=== PATIENT | female | born 1965 | race Caucasian/White ===

== ENCOUNTER 2022-05-27 19:18 | Inpatient (IN) | payer OTHER ==
[~2022-05-27] VITALS: Ht 152.4 cm; Wt 68.5 kg
[2022-05-27] MEDS ORDERED: KETOROLAC TROMETHAMINE 30 MG/ML VIAL IV STA (20:20)
[2022-05-27 21:08] LABS: BASOPHILS % 0.5 % (0.0-1.0); EOSINOPHILS # (AUTO) 0.1 (0.0-0.4); HEMATOCRIT 38.2 % (34.2-44.1); HEMOGLOBIN 12.8 g/dL (12.0-16.0); LYMPHOCYTES # (AUTO) 2.1 (1.0-3.2); LYMPHOCYTES % 34.3 % (18.0-39.1); MEAN CORPUSCULAR HEMOGLOBIN 31.7 pg (28-32); MEAN CORPUSCULAR HGB CONC 33.5 g/dL (31-35); MEAN CORPUSCULAR VOLUME 94.6 fL (81-99); MONOCYTES # (AUTO) 0.5 (0.2-0.8); MONOCYTES % 7.7 % (4.4-11.3); NEUTROPHILS # (AUTO) 3.3 (2.1-6.9); NEUTROPHILS % 55.3 % (38.7-80.0); PLATELET COUNT 362 x10e3/uL (140-360); RED BLOOD COUNT 4.04 x10e6/uL (3.6-5.1); RED CELL DISTRIBUTION WIDTH 11.5 % (11.7-14.4)
[2022-05-27 21:28] LABS: CLARITY,URINE CLEAR (CLEAR); COLOR,URINE YELLOW (YELLOW)
[2022-05-27 21:29] LABS: KETONES,URINE 1+ (NEGATIVE); LEUKOCYTE ESTERASE ,URINE NEGATIVE (NEGATIVE); NITRITE,URINE NEGATIVE (NEGATIVE); PROTEIN,URINE DIPSTICK TRACE (NEGATIVE); URINE UROBILINOGEN 0.2 mg/dL (0.2 - 1)
[2022-05-27 21:34] LABS: ALANINE AMINOTRANSFERASE 27 IU/L (0-55); ALBUMIN 3.9 g/dL (3.5-5.0); ALBUMIN/GLOBULIN RATIO 1.3 (0.8-2.0); ALKALINE PHOSPHATASE 77 IU/L (40-150); ANION GAP 18.1 mmol/L (8-16); BLOOD UREA NITROGEN 18 mg/dL (7-26); BUN/CREATININE RATIO 28 (6-25); CALCIUM 9.1 mg/dL (8.4-10.2); CARBON DIOXIDE 21 mmol/L (22-29); CHLORIDE 100 mmol/L (98-107); CREATINE KINASE 100 IU/L (29-168); CREATININE, SERUM 0.65 mg/dL (0.57-1.11); GLUCOSE 102 mg/dL (74-118); POTASSIUM 3.1 mmol/L (3.5-5.1); SODIUM 136 mmol/L (136-145)
[2022-05-27 21:53] LABS: BACTERIA,URINE FEW /HPF; EPITHELIAL CELLS,URINE FEW /LPF; MUCUS,URINE RARE (RARE); WBC,URINE (MAN) 0-5 /HPF (0-5)
[2022-05-27] MEDS ORDERED: IOPAMIDOL 370 MG/ML 100 ML INFUS..BTL INJ ONE (22:03)
[2022-05-27] MEDS ORDERED: Morphine 4mg INJECTION 4 MG/ML INJ IV PRN (23:15)
[2022-05-27 23:55] VITALS: BP 171/68
[2022-05-27] MEDS: SODIUM CHLORIDE 0.9% 1000ML 1,000 ML IV SCH (23:55)
[2022-05-28] VITALS (9 sets, daily range): BP systolic 121–162; BP diastolic 59–81
[2022-05-28] MEDS: ONDANSETRON HCL INJ 2MG/ML 2ML 2 MG/ML VIAL IV PRN (00:07)
[2022-05-28] MEDS ORDERED: DICLOFENAC SODI50 MG PO (02:02)
[2022-05-28] MEDS ORDERED: TUMS ULTRA400 MG PO (02:02)
[2022-05-28] MEDS ORDERED: LIPITOR20 MG PO (02:02)
[2022-05-28] MEDS ORDERED: METFORMIN HCL500 MG PO (02:02)
[2022-05-28] MEDS ORDERED: PANTOPRAZOLE SO40 MG PO (02:02)
[2022-05-28] MEDS ORDERED: ASPIRIN81 MG PO (02:02)
[2022-05-28] MEDS ORDERED: LISINOPRIL10 MG PO (02:02)
[2022-05-28] MEDS ORDERED: SIMETHICONE80 MG PO (02:02)
[2022-05-28] MEDS ORDERED: TERBINAFINE HC250 MG PO (02:02)
[2022-05-28] MEDS ORDERED: CARBAMAZEPINE200 MG PO ×2 (02:02)
[2022-05-28 05:14] LABS: BASOPHILS % 0.4 % (0.0-1.0); EOSINOPHILS # (AUTO) 0.1 (0.0-0.4); EOSINOPHILS % 2.5 % (0.0-6.0); HEMATOCRIT 34.1 % (34.2-44.1); HEMOGLOBIN 11.4 g/dL (12.0-16.0); LYMPHOCYTES # (AUTO) 1.8 (1.0-3.2); LYMPHOCYTES % 38.9 % (18.0-39.1); MEAN CORPUSCULAR HEMOGLOBIN 31.7 pg (28-32); MEAN CORPUSCULAR HGB CONC 33.4 g/dL (31-35); MEAN CORPUSCULAR VOLUME 94.7 fL (81-99); MONOCYTES # (AUTO) 0.4 (0.2-0.8); MONOCYTES % 8.2 % (4.4-11.3); NEUTROPHILS # (AUTO) 2.4 (2.1-6.9); NEUTROPHILS % 49.8 % (38.7-80.0); PLATELET COUNT 314 x10e3/uL (140-360); RED CELL DISTRIBUTION WIDTH 11.5 % (11.7-14.4)
[2022-05-28 05:35] LABS: ANION GAP 15.3 mmol/L (8-16); CALCIUM 8.3 mg/dL (8.4-10.2); CREATININE, SERUM 0.62 mg/dL (0.57-1.11); POTASSIUM 3.3 mmol/L (3.5-5.1)
[2022-05-28 06:06] LABS: ALBUMIN 3.3 g/dL (3.5-5.0)
[2022-05-28 06:26] LABS: ALBUMIN/GLOBULIN RATIO 1.3 (0.8-2.0)
[2022-05-28] MEDS: CARBAMAZEPINE 200 MG TAB PO SCH ×2 (10:30→20:48)
[2022-05-28] MEDS: SODIUM CHLORIDE 0.9% 1000ML 1,000 ML IV SCH (12:17)
[2022-05-28] MEDS: DEXTROSE 5% 1,000 ML IV SCH ×2 (13:20→23:17)
[2022-05-28] MEDS: CLONIDINE HCL 0.1 MG/24 HR 1 EA PATCH TOP SCH (14:30)
[2022-05-28] MEDS ORDERED: SODIUM CHLORIDE 0.9% 1000ML 1,000 ML IV SCH (17:00)
[2022-05-28] MEDS ORDERED: Morphine 4mg INJECTION 4 MG/ML INJ IV PRN (19:15)
[2022-05-29] VITALS (8 sets, daily range): BP systolic 116–144; BP diastolic 64–88
[2022-05-29 05:06] LABS: BASOPHILS % 0.2 % (0.0-1.0); EOSINOPHILS # (AUTO) 0.2 (0.0-0.4); EOSINOPHILS % 3.5 % (0.0-6.0); HEMATOCRIT 36.8 % (34.2-44.1); HEMOGLOBIN 12.5 g/dL (12.0-16.0); LYMPHOCYTES # (AUTO) 1.4 (1.0-3.2); LYMPHOCYTES % 31.8 % (18.0-39.1); MEAN CORPUSCULAR HEMOGLOBIN 31.8 pg (28-32); MEAN CORPUSCULAR VOLUME 93.6 fL (81-99); MONOCYTES # (AUTO) 0.5 (0.2-0.8); MONOCYTES % 10.8 % (4.4-11.3); NEUTROPHILS # (AUTO) 2.3 (2.1-6.9); NEUTROPHILS % 53.5 % (38.7-80.0); PLATELET COUNT 313 x10e3/uL (140-360); RED BLOOD COUNT 3.93 x10e6/uL (3.6-5.1); RED CELL DISTRIBUTION WIDTH 11.2 % (11.7-14.4)
[2022-05-29 05:33] LABS: ALBUMIN 3.4 g/dL (3.5-5.0); ALBUMIN/GLOBULIN RATIO 1.3 (0.8-2.0); CALCIUM 8.6 mg/dL (8.4-10.2); CREATININE, SERUM 0.6 mg/dL (0.57-1.11)
[2022-05-29] MEDS ORDERED: POTASSIUM CHLORIDE 20MEQ/100ML 100 ML IV STA (07:14)
[2022-05-29] MEDS: CARBAMAZEPINE 200 MG TAB PO SCH ×2 (09:03→20:46)
[2022-05-29] MEDS: DEXTROSE 5% 1,000 ML IV SCH ×2 (09:05→20:46)
[2022-05-30] VITALS (8 sets, daily range): BP systolic 125–155; BP diastolic 64–78
[2022-05-30 04:57] LABS: BASOPHILS % 0.5 % (0.0-1.0); EOSINOPHILS # (AUTO) 0.1 (0.0-0.4); EOSINOPHILS % 2.7 % (0.0-6.0); HEMOGLOBIN 13.2 g/dL (12.0-16.0); LYMPHOCYTES # (AUTO) 1.5 (1.0-3.2); MEAN CORPUSCULAR HGB CONC 35.7 g/dL (31-35); MEAN CORPUSCULAR VOLUME 89.6 fL (81-99); MONOCYTES # (AUTO) 0.4 (0.2-0.8); MONOCYTES % 9.5 % (4.4-11.3); NEUTROPHILS # (AUTO) 2.4 (2.1-6.9); NEUTROPHILS % 53.8 % (38.7-80.0); PLATELET COUNT 327 x10e3/uL (140-360); RED BLOOD COUNT 4.13 x10e6/uL (3.6-5.1); RED CELL DISTRIBUTION WIDTH 11.4 % (11.7-14.4)
[2022-05-30 05:22] LABS: ALBUMIN 3.5 g/dL (3.5-5.0); ALBUMIN/GLOBULIN RATIO 1.3 (0.8-2.0); ANION GAP 15.2 mmol/L (8-16); CALCIUM 8.7 mg/dL (8.4-10.2); CREATININE, SERUM 0.63 mg/dL (0.57-1.11); POTASSIUM 3.2 mmol/L (3.5-5.1)
[2022-05-30] MEDS: DEXTROSE 5% 1,000 ML IV SCH (05:43)
[2022-05-30] MEDS: CARBAMAZEPINE 200 MG TAB PO SCH ×2 (09:17→21:00)
[2022-05-30] MEDS ORDERED: POTASSIUM CHLORIDE 20MEQ/100ML 100 ML IV ONE (09:30)
[2022-05-30] MEDS ORDERED: PIPERACILLIN/TAZOBACTAM 3.375 GM VIAL ONE (12:51)
[2022-05-30] MEDS ORDERED: LIDOCAINE HCL 2% LOCAL INJ 5 ML SDV VIAL INJ ONE (12:52)
[2022-05-30] MEDS ORDERED: ONDANSETRON HCL INJ 2MG/ML 2ML 2 MG/ML VIAL ONE (12:52)
[2022-05-30] MEDS ORDERED: POVIDONE IODINE 0.05% 0.05 % ML PO ONE (12:52)
[2022-05-30] MEDS ORDERED: DEXAMETHASONE SOD PHOS INJ 4 MG/ML SDV ONE (12:52)
[2022-05-30] MEDS ORDERED: ROCURONIUM BROMIDE 10 MG/ML 5ML VIAL IV ONE (12:52)
[2022-05-30] MEDS ORDERED: PROPOFOL IV EMULSION 10 MG/ML 20 ML VIAL ONE (12:52)
[2022-05-30] MEDS ORDERED: SEVOFLURANE INHAL SOLN 250 ML PEN BTL ONE (12:52)
[2022-05-30] MEDS ORDERED: EPHEDRINE SULFATE INJ 50 MG/ML VIAL ONE (12:52)
[2022-05-30] MEDS ORDERED: FENTANYL CITRATE/PF 100MCG/2 ML INJ ONE (13:33)
[2022-05-30] MEDS ORDERED: MIDAZOLAM HCL 2 MG/2 ML VIAL ONE (13:33)
[2022-05-30] MEDS ORDERED: NALOXONE HCL INJ 0.4 MG/ML AMP IV PRN (14:00)
[2022-05-30] MEDS ORDERED: D5.45%NS/KCL 20MEQ 1,000 ML IV SCH (14:00)
[2022-05-30] MEDS: SODIUM CHLORIDE 0.9% 250ML IRRIG IR SCH ×3 (14:00→22:00)
[2022-05-30] MEDS ORDERED: HYDROMORPHONE 0.2MG/ML-SOD CHL 30ML PCA SYRINGE IV PRN (14:00)
[2022-05-30] MEDS ORDERED: ACETAMINOPHEN 1000 MG/100 ML IV PRN (16:00)
[2022-05-30] MEDS: D5.45%NS/KCL 20MEQ 1,000 ML IV SCH (17:01)
[2022-05-31] VITALS (7 sets, daily range): BP systolic 113–154; BP diastolic 62–72
[2022-05-31] MEDS: SODIUM CHLORIDE 0.9% 250ML IRRIG IR SCH ×5 (02:00→17:16)
[2022-05-31 04:56] LABS: BASOPHILS % 0.1 % (0.0-1.0); HEMATOCRIT 38.2 % (34.2-44.1); HEMOGLOBIN 13.3 g/dL (12.0-16.0); LYMPHOCYTES # (AUTO) 1.3 (1.0-3.2); LYMPHOCYTES % 11.5 % (18.0-39.1); MEAN CORPUSCULAR HGB CONC 34.8 g/dL (31-35); MEAN CORPUSCULAR VOLUME 91.8 fL (81-99); MONOCYTES # (AUTO) 0.7 (0.2-0.8); MONOCYTES % 6.3 % (4.4-11.3); NEUTROPHILS % 81.6 % (38.7-80.0); PLATELET COUNT 357 x10e3/uL (140-360); RED BLOOD COUNT 4.16 x10e6/uL (3.6-5.1); RED CELL DISTRIBUTION WIDTH 11.5 % (11.7-14.4)
[2022-05-31 05:18] LABS: ANION GAP 13.8 mmol/L (8-16); CALCIUM 8.5 mg/dL (8.4-10.2); CREATININE, SERUM 0.61 mg/dL (0.57-1.11); POTASSIUM 3.8 mmol/L (3.5-5.1)
[2022-05-31] MEDS: D5.45%NS/KCL 20MEQ 1,000 ML IV SCH ×3 (06:52→20:37)
[2022-05-31] MEDS: CARBAMAZEPINE 200 MG TAB PO SCH ×3 (08:53→20:30)
[2022-05-31] MEDS: ONDANSETRON HCL INJ 2MG/ML 2ML 2 MG/ML VIAL IV PRN (09:53)
[2022-05-31] MEDS ORDERED: HYDROMORPHONE 0.2MG/ML-SOD CHL 30ML PCA SYRINGE IV PRN (18:00)
[2022-05-31] MEDS: BISACODYL 10 MG SUPP PR SCH (20:30)
[2022-06-01] VITALS (8 sets, daily range): BP systolic 130–150; BP diastolic 65–72
[2022-06-01] MEDS: D5.45%NS/KCL 20MEQ 1,000 ML IV SCH ×2 (03:57→13:47)
[2022-06-01 09:11] LABS: BASOPHILS % 0.1 % (0.0-1.0); EOSINOPHILS % 0.3 % (0.0-6.0); HEMATOCRIT 37.1 % (34.2-44.1); HEMOGLOBIN 12.5 g/dL (12.0-16.0); LYMPHOCYTES # (AUTO) 1.1 (1.0-3.2); LYMPHOCYTES % 15.5 % (18.0-39.1); MEAN CORPUSCULAR HGB CONC 33.7 g/dL (31-35); MEAN CORPUSCULAR VOLUME 94.9 fL (81-99); MONOCYTES # (AUTO) 0.6 (0.2-0.8); MONOCYTES % 8.3 % (4.4-11.3); NEUTROPHILS # (AUTO) 5.5 (2.1-6.9); NEUTROPHILS % 75.5 % (38.7-80.0); PLATELET COUNT 312 x10e3/uL (140-360); RED BLOOD COUNT 3.91 x10e6/uL (3.6-5.1); RED CELL DISTRIBUTION WIDTH 11.4 % (11.7-14.4)
[2022-06-01] MEDS ORDERED: BISACODYL 10 MG SUPP PR ONE (09:16)
[2022-06-01] MEDS: BISACODYL 10 MG SUPP PR SCH (09:26)
[2022-06-01] MEDS: CARBAMAZEPINE 200 MG TAB PO SCH ×2 (09:26→21:05)
[2022-06-01 09:29] LABS: ANION GAP 11.9 mmol/L (8-16); BLOOD UREA NITROGEN < 5 mg/dL (7-26); CALCIUM 8.6 mg/dL (8.4-10.2); CARBON DIOXIDE 25 mmol/L (22-29); CHLORIDE 103 mmol/L (98-107); CREATININE, SERUM 0.56 mg/dL (0.57-1.11); GLUCOSE 136 mg/dL (74-118); POTASSIUM 3.9 mmol/L (3.5-5.1); SODIUM 136 mmol/L (136-145)
[2022-06-01 09:35] LABS: BUN/CREATININE RATIO 9 (6-25)
[2022-06-02] VITALS (7 sets, daily range): BP systolic 123–166; BP diastolic 70–92
[2022-06-02] MEDS: D5.45%NS/KCL 20MEQ 1,000 ML IV SCH (03:07)
[2022-06-02 08:07] LABS: BASOPHILS % 0.2 % (0.0-1.0); EOSINOPHILS # (AUTO) 0.1 (0.0-0.4); EOSINOPHILS % 1.2 % (0.0-6.0); HEMATOCRIT 37.4 % (34.2-44.1); HEMOGLOBIN 12.2 g/dL (12.0-16.0); LYMPHOCYTES # (AUTO) 1.6 (1.0-3.2); LYMPHOCYTES % 24.4 % (18.0-39.1); MEAN CORPUSCULAR HEMOGLOBIN 31.3 pg (28-32); MEAN CORPUSCULAR HGB CONC 32.6 g/dL (31-35); MEAN CORPUSCULAR VOLUME 95.9 fL (81-99); MONOCYTES # (AUTO) 0.6 (0.2-0.8); MONOCYTES % 8.9 % (4.4-11.3); NEUTROPHILS # (AUTO) 4.2 (2.1-6.9); PLATELET COUNT 311 x10e3/uL (140-360); RED CELL DISTRIBUTION WIDTH 11.6 % (11.7-14.4)
[2022-06-02 08:23] LABS: ANION GAP 13.8 mmol/L (8-16); CREATININE, SERUM 0.61 mg/dL (0.57-1.11); POTASSIUM 3.8 mmol/L (3.5-5.1)
[2022-06-02] MEDS: CARBAMAZEPINE 200 MG TAB PO SCH ×2 (09:16→20:42)
[2022-06-02] MEDS: HYDROCODONE/APAP 7.5MG-325MG 1 EA TAB PO PRN ×3 (12:30→20:43)
[2022-06-02] MEDS: ONDANSETRON HCL INJ 2MG/ML 2ML 2 MG/ML VIAL IV PRN (18:44)
[2022-06-02] MEDS: HYDROMORPHONE 1MG/1ML INJ IV PRN ×2 (18:50→22:20)
[2022-06-02] MEDS: BISACODYL 10 MG SUPP PR SCH (22:06)
[2022-06-03] VITALS (7 sets, daily range): BP systolic 125–158; BP diastolic 82–96
[2022-06-03] MEDS: HYDROCODONE/APAP 7.5MG-325MG 1 EA TAB PO PRN ×3 (00:58→21:05)
[2022-06-03] MEDS: D5.45%NS/KCL 20MEQ 1,000 ML IV SCH (03:07)
[2022-06-03] MEDS: HYDROMORPHONE 1MG/1ML INJ IV PRN ×4 (07:21→23:00)
[2022-06-03] MEDS: BISACODYL 10 MG SUPP PR SCH (08:19)
[2022-06-03] MEDS: CARBAMAZEPINE 200 MG TAB PO SCH ×2 (09:37→21:05)
[2022-06-03] MEDS ORDERED: MAGNESIUM HYDROXIDE 30 ML UDC PO ONE ×4 (13:15→20:45)
[2022-06-03] MEDS ORDERED: BISACODYL 10 MG SUPP PR ONE (15:00)
[2022-06-03] MEDS: ONDANSETRON HCL INJ 2MG/ML 2ML 2 MG/ML VIAL IV PRN (16:35)
[2022-06-04] VITALS (9 sets, daily range): BP systolic 129–155; BP diastolic 67–86
[2022-06-04] MEDS: D5.45%NS/KCL 20MEQ 1,000 ML IV SCH ×2 (01:20→21:33)
[2022-06-04] MEDS: HYDROCODONE/APAP 7.5MG-325MG 1 EA TAB PO PRN ×2 (01:21→08:16)
[2022-06-04] MEDS ORDERED: BISACODYL 10 MG SUPP PR ONE (08:00)
[2022-06-04] MEDS: CARBAMAZEPINE 200 MG TAB PO SCH ×2 (08:15→21:30)
[2022-06-04] MEDS: CLONIDINE HCL 0.1 MG/24 HR 1 EA PATCH TOP SCH (11:58)
[2022-06-04] MEDS: HYDROMORPHONE 1MG/1ML INJ IV PRN (12:21)
[2022-06-04] MEDS: TRAMADOL HCL 50 MG TAB PO PRN ×2 (17:49→23:50)
[2022-06-04] MEDS ORDERED: MAGNESIUM HYDROXIDE 30 ML UDC PO SCH (21:00)
[2022-06-05] VITALS: BP 165/97
[2022-06-05 04:00] VITALS: BP 144/74
[2022-06-05 08:00] VITALS: BP 143/81
[2022-06-05] MEDS: CARBAMAZEPINE 200 MG TAB PO SCH (08:20)
[2022-06-05] MEDS: TRAMADOL HCL 50 MG TAB PO PRN ×2 (08:20→17:02)
[2022-06-05 08:27] VITALS: BP 143/81
[2022-06-05 11:33] VITALS: BP 142/88
[2022-06-05 15:43] VITALS: BP 143/69
[2022-06-05] MEDS ORDERED: ONDANSETRON HCL 4 MG ORAL DISINTEGRATING TAB PO PRN (17:30)
[2022-06-06] MEDS ORDERED: PANTOPRAZOLE SOD 40 MG TABEC PO SCH (07:30)
== END 2022-06-05 19:00 | disposition home or self-care (01) | DRG 331 ==
LOC: ER 19:28 → ERHOLD 23:05 → MED/SURG 05-28 00:52 → OBSVTOIN 05-28 11:43 → INTOOBSV 05-28 11:43
PROC: 0DTN0ZZ Resection of Sigmoid Colon, Open Approach (ICD-10-PCS; principal; 2022-05-30 12:06)
DX: K56.2 Volvulus (principal); K56.50 Intestinal adhesions [bands], unspecified as to partial versus complete obstruction; E11.9 Type 2 diabetes mellitus without complications; E87.6 Hypokalemia; I10 Essential (primary) hypertension; F41.9 Anxiety disorder, unspecified; Z20.822 Contact with and (suspected) exposure to COVID-19; K56.7 Ileus, unspecified
CPT/HCPCS: 36415; 74019; 74022; 74176; 74177; 80048; 80053; 81001; 82550; 82553; 82948; 83690; 84484; 85025; 88305; 88307; 93005; 94799; 99284; G0378; J1100; J1170; J1885; J2001; J2270; J2405; J2543; J3480; J7030; J7070; Q9967